=== PATIENT | female | born 1980 | race Caucasian/White ===

== ENCOUNTER 2016-05-31 11:45 | Outpatient (RCR) | payer OTHER | END 2016-06-12 14:12 | disposition still patient (30) | LOC: MKS.ESL.PT 11:45 | DX: M53.3 Sacrococcygeal disorders, not elsewhere classified (principal) ==

== ENCOUNTER → 2016-07-12 | Outpatient (CLI) | payer OTHER | LOC: COL.RAD 12:27 | DX: M53.3 Sacrococcygeal disorders, not elsewhere classified (principal); G89.29 Other chronic pain ==